=== PATIENT | female | born 1990 | race African-American/Black ===

== ENCOUNTER 2016-11-10 07:24 | Emergency (ER) ==
--- NOTE | 2016-11-10 08:17 | PROVIDER DOCUMENTATION ---
HPI-EENT General - General Chief Complaint: Cough Stated Complaint: cough/cold sx Time Seen by Provider: 11/10/16 08:10 Allergies/Adverse Reactions: Patient Allergies Allergy/AdvReac Type Severity Reaction Status Date / Time No Known Allergies Allergy Verified 07/01/16 21:36 Home Medications: Home Medication List Medication Instructions Recorded Confirmed Last Taken Type Aspirin EC 81 mg PO DAILY 12/12/14 07/01/16 06/29/16 History Amoxicillin 875 mg PO Q8HR #20 tablet 11/10/16 Unknown Rx - History of Present Illness-EENT General Nature of Presenting Problem: ST FOR 1 DAY EENT Location: reports: throat Quality of Pain: reports: burning Severity: reports: mild Onset/Duration: reports: 24 hours ago Timing: reports: still present Associated Symptoms: reports: sore throat. denies: facial pain/swelling, poor fluid intake, poor solids intake, sinus infection, voice change Similar Symptoms Previously?: Yes Recently seen or treated by another doctor?: No Review of Systems - Adult - REVIEW OF SYSTEMS - ADULT Constitutional: reports: see HPI All Other Systems: Reviewed and Negative Past History - Adult - PAST MEDICAL HISTORY-ADULT Review of Records: reports: Old Records Reviewed, Nursing Assessment Review, Medications Reviewed, Social history reviewed & non-contributory. Major Childhood Illnesses: reports: denies history Cardiovascular: reports: denies history Respiratory: reports: other (PE) Gastrointestinal: reports: denies history Obstetrical/Gynecological: reports: denies history Genitourinary: reports: denies history Musculoskeletal: reports: denies history Neurological: reports: denies history Endocrine/Immune: reports: anemia, Sickle Cell disease Other Conditions: reports: other (dvt) - PRIOR SURGERIES/PROCEDURES Surgical/Procedure History: reports: none - IMMUNIZATION STATUS Childhood Immunizations: See Nurse Assessment Flu Vaccine: See Nurse Assessment - FAMILY HISTORY Family History: reviewed, not pertinent - SOCIAL HISTORY Smoking: denies Provider spent 3-5 mins advising pt. on dangers of tobacco.: Discussed manners to quit use, and f/u contacts for add'l counseling. Substance Use: none presently/history of abuse Alcohol Use Frequency: never Living Situation: family Physical Exam- EENT - Physical Exam EENT Initial Vital Signs Reviewed: Yes General Appearance: appears well, alert, no apparent distress Eye Exam: bilateral eye: normal inspection, PERRL, EOMI Ear Exam: bilateral ear: auricle normal, canal normal, TM normal Nasal Exam: normal inspection Throat Exam: normal mouth inspection, pharynx normal, dental tenderness, other ( PHARYNX ERYTHEMA/NO EXUDATES) Neck: non-tender Respiratory: chest non-tender, lungs clear, normal breath sounds, no pleuratic chest pain, no respiratory distress, no accessory muscle use Cardiovascular: normal peripheral pulses, regular rate, rhythm Abdominal Exam: normal bowel sounds, non tender, soft Lymphatic: no adenopathy Back Exam: normal inspection, no CVA tenderness Extremity: normal range of motion, non-tender, normal gait, normal inspection Integumentary: normal color, normal turgor, warm/dry 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
[2016-11-10] MEDS ORDERED: ROCEPHIN IM ONE (08:41)
[2016-11-10] MEDS ORDERED: XYLOCAINE-MPF 1% INJ ONE (08:41)
[2016-11-10 09:54] VITALS: BP 128/79
== END 2016-11-10 09:54 | disposition home or self-care (01) ==
LOC: ED 07:24
DX: J02.0 Streptococcal pharyngitis (principal); R05 Cough; D57.1 Sickle-cell disease without crisis; Z79.82 Long term (current) use of aspirin; Z86.711 Personal history of pulmonary embolism; Z86.718 Personal history of other venous thrombosis and embolism
CPT/HCPCS: 87430; 87804; J0696